=== PATIENT | female | born 1970 | race Caucasian/White ===

== ENCOUNTER 2016-09-26 08:49 | Day surgery (SDC) | payer OTHER ==
[2016-09-26] MEDS ORDERED: D5 LR 1000 ML 1,000 ML IV ONE (10:05)
[2016-09-26] MEDS ORDERED: DIPRIVAN VIAL 20 ML ONE (10:55)
[2016-09-26 11:23] VITALS: BP 92/66
== END 2016-09-26 11:27 | disposition home or self-care (01) ==
LOC: SURG1 08:49
PROVIDERS: ATTEND Internal Medicine Gastroenterology
PROC: 0DJ08ZZ Inspection of Upper Intestinal Tract, Via Natural or Artificial Opening Endoscopic (ICD-10-PCS; principal; 2016-09-26 12:00)
PROC: 0DB68ZX Excision of Stomach, Via Natural or Artificial Opening Endoscopic, Diagnostic (ICD-10-PCS; principal; 2016-09-26 12:00)
DX: K25.9 Gastric ulcer, unspecified as acute or chronic, without hemorrhage or perforation (principal); R10.13 Epigastric pain; R10.11 Right upper quadrant pain; K21.9 Gastro-esophageal reflux disease without esophagitis; K20.8 Other esophagitis; K44.9 Diaphragmatic hernia without obstruction or gangrene; K29.60 Other gastritis without bleeding
CPT/HCPCS: A4217; J3490; J7120